=== PATIENT | female | born 1945 | race Caucasian/White ===

== ENCOUNTER 2021-07-25 11:14 | Inpatient (IN) | payer MEDICARE, MEDICAID ==
[~2021-07-25] VITALS: Ht 170.2 cm; Wt 61.7 kg
[2021-07-25 13:19] LABS: BASOPHILS % 0.5 % (0.0-2.0); EOSINOPHILS % 1.3 % (0.0-5.0); HEMATOCRIT. 45.9 % (36.0-48.0); HEMOGLOBIN. 15.7 g/dL (12.0-16.0); LYMPHOCYTES % 25.3 % (20.0-50.0); MEAN CORPUSCULAR HEMOGLOBIN 31.7 pg (28.0-32.0); MEAN CORPUSCULAR VOLUME 92.3 fL (81.0-99.0); MEAN PLATELET VOLUME 7.9 fl (7.4-10.4); MONOCYTES % 10.9 % (2.0-8.0); PLATELET 222 x1000/uL (130-400); RED BLOOD CELL COUNT 4.97 mill/uL (4.2-5.4); RED CELL DISTRIBUTION WIDTH 13.5 % (11.6-14.6)
[2021-07-25 13:24] LABS: CHLORIDE 103 mEq/L (98-107)
[2021-07-25] MEDS ORDERED: SODIUM CHLORIDE 0.9% 500 ML IV ONE (13:30)
[2021-07-25] MEDS ORDERED: IPRATROPIUM BROMIDE (0.02%) 0.5MG/2.5ML NEB HHN STA (13:37)
[2021-07-25] MEDS ORDERED: METHYLPREDNISOLONE SOD SUCC 125 MG/2 ML VIAL IV STA (13:37)
[2021-07-25] MEDS ORDERED: ALBUTEROL (0.083%) 2.5MG/3ML NEB HHN STA (13:37)
[2021-07-25 14:28] LABS: BG CARBOXYHEMOGLOBIN 0.4 % (0.5-1.5); BG DEOXYHEMOGLOBIN 5.6 % (0.0-5.0); BG FRACTION INSPIRED OXYGEN 21; BG HCO3 ACT 23.6 mmol/L (22.0-26.0); BG METHEMOGLOBIN 0.2 % (0.0-1.5); BG OXYGEN SATURATION 94.4 % (92.0-98.5); BG OXYHEMOGLOBIN 93.8 % (94.0-97.0); BG PCO2 32.3 mmHg (35.0-45.0); BG PH 7.482 (7.350-7.450); BG PO2 68.5 mmHg (75.0-100.0); BG SAMPLE SITE RIGHT BRACHIAL; BG TOTAL HEMOGLOBIN 15.2 g/dL (12.0-18.0); BG VENT MODE ROOM AIR
[2021-07-25] MEDS ORDERED: LEVOFLOXACIN 500MG PREMIX 100 ML IV ONE (19:30)
[2021-07-26] MEDS ORDERED: IOHEXOL-350 100 ML BOTTLE ONE (08:02)
[2021-07-26] MEDS ORDERED: CEFTRIAXONE 1 G PREMIX 50 ML IV SCH (13:00)
[2021-07-26] MEDS ORDERED: ALBUTEROL 6.7GM HFA INHALER ORI PRN (13:00)
[2021-07-26] MEDS ORDERED: ONDANSETRON HCL 4MG/2ML INJ IV PRN (13:00)
[2021-07-26] MEDS ORDERED: POTASSIUM CHLORIDE 20MEQ TABLET SR PO NR (13:15)
[2021-07-26] MEDS: ENOXAPARIN 40MG/0.4ML SYR SUBCUT SCH (13:43)
[2021-07-27 10:44] VITALS: BP 141/75
[2021-07-27 11:08] VITALS: BP 130/75
[2021-07-27] MEDS: ENOXAPARIN 40MG/0.4ML SYR SUBCUT SCH (13:15)
[2021-07-27] MEDS: CEFTRIAXONE 1,000 MG in DEXTROSE 5% WATER 50 ML IV SCH (13:15)
[2021-07-27 16:00] VITALS: BP 138/75
[2021-07-27 22:00] VITALS: BP 80/52
[2021-07-28 06:00] VITALS: BP 137/82
[2021-07-28 08:28] LABS: BASOPHILS % 0.5 % (0.0-2.0); EOSINOPHILS % 2.3 % (0.0-5.0); HEMATOCRIT. 40.9 % (36.0-48.0); LYMPHOCYTES % 21.7 % (20.0-50.0); MEAN CORPUSCULAR HEMOGLOBIN 31.5 pg (28.0-32.0); MEAN CORPUSCULAR VOLUME 91.8 fL (81.0-99.0); MONOCYTES % 9.4 % (2.0-8.0); NEUTROPHILS % 66.1 % (40.0-76.0); PLATELET 211 x1000/uL (130-400); RED BLOOD CELL COUNT 4.46 mill/uL (4.2-5.4); RED CELL DISTRIBUTION WIDTH 13.3 % (11.6-14.6)
[2021-07-28 08:42] LABS: BG BASE EXCESS 3.3 mmol/L (-2.0-2.0); BG CARBOXYHEMOGLOBIN 0.4 % (0.5-1.5); BG DEOXYHEMOGLOBIN 6.5 % (0.0-5.0); BG HCO3 ACT 26.9 mmol/L (22.0-26.0); BG METHEMOGLOBIN 0.1 % (0.0-1.5); BG OXYGEN SATURATION 93.5 % (92.0-98.5); BG PCO2 37.9 mmHg (35.0-45.0); BG PH 7.469 (7.350-7.450); BG SAMPLE SITE RIGHT BRACHIAL; BG TOTAL HEMOGLOBIN 15.4 g/dL (12.0-18.0); BG VENT MODE ROOM AIR
[2021-07-28] MEDS ORDERED: POTASSIUM CHLORIDE 20MEQ TABLET SR PO NR (09:15)
[2021-07-28 09:46] LABS: CHLORIDE 108 mEq/L (98-107)
[2021-07-28 12:00] VITALS: BP 146/83
[2021-07-28] MEDS: ENOXAPARIN 40MG/0.4ML SYR SUBCUT SCH (14:38)
[2021-07-28] MEDS: CEFTRIAXONE 1,000 MG in DEXTROSE 5% WATER 50 ML IV SCH (14:38)
[2021-07-28] MEDS: ACETAMINOPHEN 325MG TABLET PO PRN (14:46)
[2021-07-28 20:00] VITALS: BP 142/89
[2021-07-29 04:00] VITALS: BP 144/89
[2021-07-29 08:00] VITALS: BP 128/84
[2021-07-29 12:00] VITALS: BP 144/79
[2021-07-29] MEDS: CEFTRIAXONE 1,000 MG in DEXTROSE 5% WATER 50 ML IV SCH (12:53)
[2021-07-29 13:38] LABS: BG BASE EXCESS 2.6 mmol/L (-2.0-2.0); BG CARBOXYHEMOGLOBIN 0.4 % (0.5-1.5); BG DEOXYHEMOGLOBIN 7.8 % (0.0-5.0); BG FRACTION INSPIRED OXYGEN 21; BG HCO3 ACT 26.1 mmol/L (22.0-26.0); BG METHEMOGLOBIN 0.3 % (0.0-1.5); BG OXYGEN SATURATION 92.1 % (92.0-98.5); BG OXYHEMOGLOBIN 91.5 % (94.0-97.0); BG PCO2 36.6 mmHg (35.0-45.0); BG PH 7.471 (7.350-7.450); BG PO2 59.6 mmHg (75.0-100.0); BG SAMPLE SITE RIGHT BRACHIAL; BG TOTAL HEMOGLOBIN 14.5 g/dL (12.0-18.0); BG VENT MODE ROOM AIR
[2021-07-29 13:43] LABS: BASOPHILS % 0.4 % (0.0-2.0); EOSINOPHILS % 3.5 % (0.0-5.0); HEMATOCRIT. 40.8 % (36.0-48.0); HEMOGLOBIN. 13.9 g/dL (12.0-16.0); LYMPHOCYTES % 24.3 % (20.0-50.0); MEAN CORPUSCULAR HEMOGLOBIN 30.8 pg (28.0-32.0); MEAN CORPUSCULAR VOLUME 90.5 fL (81.0-99.0); MEAN PLATELET VOLUME 7.9 fl (7.4-10.4); MONOCYTES % 9.7 % (2.0-8.0); NEUTROPHILS % 62.1 % (40.0-76.0); PLATELET 256 x1000/uL (130-400); RED BLOOD CELL COUNT 4.51 mill/uL (4.2-5.4); RED CELL DISTRIBUTION WIDTH 13.3 % (11.6-14.6)
[2021-07-29] MEDS: ENOXAPARIN 40MG/0.4ML SYR SUBCUT SCH (13:47)
[2021-07-29 13:53] LABS: CHLORIDE 107 mEq/L (98-107)
[2021-07-29 16:00] VITALS: BP 136/73
[2021-07-29] MEDS ORDERED: CLONIDINE 0.1MG TABLET PO PRN (16:30)
[2021-07-29] MEDS ORDERED: HYDROCODONE/ACETAMINOPHEN 5/325MG TABLET PO PRN (16:30)
[2021-07-29] MEDS ORDERED: NALOXONE HCL 0.4MG/ML VIAL IV PRN (16:45)
[2021-07-29] MEDS: DEXAMETHASONE 4MG TABLET PO SCH (17:54)
[2021-07-29 20:00] VITALS: BP 143/84
[2021-07-30] VITALS: BP 143/82
[2021-07-30 04:00] VITALS: BP 119/69
[2021-07-30 07:33] LABS: CLARITY URINE CLEAR (CLEAR); COLOR URINE YELLOW (YELLOW); KETONES URINE NEGATIVE (NEGATIVE); LEUKOCYTE ESTERASE URINE NEGATIVE (NEGATIVE); NITRITE URINE NEGATIVE (NEGATIVE); OCCULT BLOOD URINE NEGATIVE (NEGATIVE); PH URINE 5.5 (4.5-8.0); PROTEIN URINE NEGATIVE (NEGATIVE); SPECIFIC GRAVITY URINE 1.015 (1.005-1.030); UROBILINOGEN URINE 0.2 E.U./dL (0.2-1.0)
[2021-07-30 08:00] VITALS: BP 113/68
[2021-07-30] MEDS: DEXAMETHASONE 4MG TABLET PO SCH (08:37)
[2021-07-30 12:00] VITALS: BP 129/77
[2021-07-30] MEDS: CEFTRIAXONE 1,000 MG in DEXTROSE 5% WATER 50 ML IV SCH (12:06)
[2021-07-30] MEDS: ENOXAPARIN 40MG/0.4ML SYR SUBCUT SCH (13:22)
[2021-07-30 16:00] VITALS: BP 118/62
[2021-07-30] MEDS: ALBUTEROL 6.7GM HFA INHALER ORI SCH (16:48)
[2021-07-31 08:00] VITALS: BP 106/60
[2021-07-31] MEDS: DEXAMETHASONE 4MG TABLET PO SCH (08:50)
[2021-07-31] MEDS: ALBUTEROL 6.7GM HFA INHALER ORI SCH ×3 (08:50→22:04)
[2021-07-31 10:08] LABS: BG BASE EXCESS 1.7 mmol/L (-2.0-2.0); BG CARBOXYHEMOGLOBIN 0.4 % (0.5-1.5); BG DEOXYHEMOGLOBIN 3.3 % (0.0-5.0); BG FRACTION INSPIRED OXYGEN 28; BG HCO3 ACT 25.3 mmol/L (22.0-26.0); BG METHEMOGLOBIN 0.4 % (0.0-1.5); BG OXYGEN SATURATION 96.7 % (92.0-98.5); BG OXYHEMOGLOBIN 95.9 % (94.0-97.0); BG PCO2 36.4 mmHg (35.0-45.0); BG SAMPLE SITE LEFT BRACHIAL; BG TOTAL HEMOGLOBIN 14.1 g/dL (12.0-18.0); BG VENT MODE NASAL CANNULA
[2021-07-31 12:00] VITALS: BP 131/78
[2021-07-31] MEDS: ENOXAPARIN 40MG/0.4ML SYR SUBCUT SCH (14:49)
[2021-07-31 16:00] VITALS: BP 109/59
[2021-07-31 20:00] VITALS: BP 111/52
[2021-08-01] VITALS: BP 113/62
[2021-08-01 04:00] VITALS: BP 124/65
[2021-08-01] MEDS: ALBUTEROL 6.7GM HFA INHALER ORI SCH ×4 (05:35→21:57)
[2021-08-01 08:00] VITALS: BP 114/66
[2021-08-01] MEDS: DEXAMETHASONE 4MG TABLET PO SCH (08:27)
[2021-08-01 12:00] VITALS: BP 112/56
[2021-08-01] MEDS: ENOXAPARIN 40MG/0.4ML SYR SUBCUT SCH (15:33)
[2021-08-01 16:00] VITALS: BP 114/58
[2021-08-01 20:00] VITALS: BP 121/53
[2021-08-02] VITALS: BP 119/64
[2021-08-02 04:00] VITALS: BP 130/52
[2021-08-02] MEDS: ALBUTEROL 6.7GM HFA INHALER ORI SCH ×4 (04:44→21:28)
[2021-08-02 07:14] LABS: CHLORIDE 108 mEq/L (98-107)
[2021-08-02 07:15] LABS: HEMATOCRIT 40.2 % (36.0-48.0); HEMOGLOBIN 13.2 g/dL (12.0-16.0); MEAN CORPUSCULAR HEMOGLOBIN 30.7 pg (28.0-32.0); MEAN CORPUSCULAR VOLUME 93.2 fL (81.0-99.0); PLATELET 249 x1000/uL (130-400); RED BLOOD CELL COUNT 4.31 mill/uL (4.2-5.4); RED CELL DISTRIBUTION WIDTH 13.7 % (11.6-14.6)
[2021-08-02 08:00] VITALS: BP 125/71
[2021-08-02] MEDS: DEXAMETHASONE 4MG TABLET PO SCH (09:09)
[2021-08-02 12:00] VITALS: BP 108/65
[2021-08-02] MEDS: ENOXAPARIN 40MG/0.4ML SYR SUBCUT SCH (13:41)
[2021-08-02 16:00] VITALS: BP 129/78
[2021-08-02 20:00] VITALS: BP 115/74
[2021-08-03] VITALS: BP 119/68
[2021-08-03 04:00] VITALS: BP 112/72
[2021-08-03] MEDS: ALBUTEROL 6.7GM HFA INHALER ORI SCH ×4 (04:28→21:31)
[2021-08-03 07:52] VITALS: BP 129/67
[2021-08-03] MEDS: DEXAMETHASONE 4MG TABLET PO SCH (08:45)
[2021-08-03 11:58] VITALS: BP 136/72
[2021-08-03] MEDS: ENOXAPARIN 40MG/0.4ML SYR SUBCUT SCH (14:48)
[2021-08-03 16:31] VITALS: BP 99/66
[2021-08-03 20:00] VITALS: BP 124/73
[2021-08-04] VITALS (7 sets, daily range): BP systolic 102–143; BP diastolic 55–70
[2021-08-04] MEDS: ALBUTEROL 6.7GM HFA INHALER ORI SCH ×3 (03:56→21:22)
[2021-08-04] MEDS: DEXAMETHASONE 4MG TABLET PO SCH (08:03)
[2021-08-04] MEDS: ENOXAPARIN 40MG/0.4ML SYR SUBCUT SCH (14:47)
[2021-08-04] MEDS: FAMOTIDINE 20MG TABLET PO SCH (21:21)
[2021-08-05] VITALS: BP 106/45
[2021-08-05] MEDS: ALBUTEROL 6.7GM HFA INHALER ORI SCH ×2 (03:45→21:37)
[2021-08-05 04:00] VITALS: BP 119/44
[2021-08-05 08:00] VITALS: BP 134/59
[2021-08-05] MEDS: DEXAMETHASONE 2MG TABLET PO SCH (10:00)
[2021-08-05 12:00] VITALS: BP 118/61
[2021-08-05] MEDS: ENOXAPARIN 40MG/0.4ML SYR SUBCUT SCH (15:44)
[2021-08-05 16:00] VITALS: BP 114/54
[2021-08-05 20:00] VITALS: BP 108/45
[2021-08-05] MEDS: FAMOTIDINE 20MG TABLET PO SCH (21:37)
[2021-08-06] VITALS: BP 104/41
[2021-08-06] MEDS: ALBUTEROL 6.7GM HFA INHALER ORI SCH ×4 (03:45→21:24)
[2021-08-06 04:00] VITALS: BP 113/63
[2021-08-06 08:00] VITALS: BP 134/58
[2021-08-06] MEDS: DEXAMETHASONE 2MG TABLET PO SCH (08:40)
[2021-08-06] MEDS: ACETAMINOPHEN 325MG TABLET PO PRN (08:40)
[2021-08-06 12:00] VITALS: BP_SYST 111; BP_SYST 97; BP_SYST 98; BP_DIAS 53; BP_DIAS 54; BP_DIAS 55
[2021-08-06] MEDS ORDERED: ALBU90AE INH (12:18)
[2021-08-06] MEDS ORDERED: MECL-159 MT (12:18)
[2021-08-06] MEDS ORDERED: MECLIZINE 25MG TABLET PO NR (12:30)
[2021-08-06] MEDS: ENOXAPARIN 40MG/0.4ML SYR SUBCUT SCH (15:59)
[2021-08-06 16:00] VITALS: BP 108/49
[2021-08-06 16:41] LABS: BASOPHILS % 0.1 % (0.0-2.0); EOSINOPHILS % 0.9 % (0.0-5.0); HEMATOCRIT. 37.1 % (36.0-48.0); HEMOGLOBIN. 12.6 g/dL (12.0-16.0); LYMPHOCYTES % 15.2 % (20.0-50.0); MEAN CORPUSCULAR HEMOGLOBIN 31.2 pg (28.0-32.0); MEAN CORPUSCULAR VOLUME 92.3 fL (81.0-99.0); MONOCYTES % 6.8 % (2.0-8.0); PLATELET 255 x1000/uL (130-400); RED BLOOD CELL COUNT 4.03 mill/uL (4.2-5.4); RED CELL DISTRIBUTION WIDTH 13.9 % (11.6-14.6)
[2021-08-06 17:54] LABS: CHLORIDE 107 mEq/L (98-107)
[2021-08-06 20:00] VITALS: BP 100/57
[2021-08-06] MEDS: FAMOTIDINE 20MG TABLET PO SCH (21:24)
[2021-08-06] MEDS: SODIUM CHLORIDE 0.45% 1,000 ML IV SCH (21:25)
[2021-08-07] VITALS (7 sets, daily range): BP systolic 99–121; BP diastolic 54–73
[2021-08-07] MEDS: MECLIZINE 25MG TABLET PO PRN ×2 (01:10→20:45)
[2021-08-07] MEDS: ALBUTEROL 6.7GM HFA INHALER ORI SCH ×4 (04:35→20:45)
[2021-08-07] MEDS: SODIUM CHLORIDE 0.45% 1,000 ML IV SCH ×2 (06:45→18:06)
[2021-08-07 09:28] LABS: BASOPHILS % 0.7 % (0.0-2.0); EOSINOPHILS % 1.9 % (0.0-5.0); HEMATOCRIT. 37.4 % (36.0-48.0); HEMOGLOBIN. 12.7 g/dL (12.0-16.0); LYMPHOCYTES % 27.7 % (20.0-50.0); MEAN CORPUSCULAR HEMOGLOBIN 31.5 pg (28.0-32.0); MEAN PLATELET VOLUME 8.5 fl (7.4-10.4); MONOCYTES % 7.1 % (2.0-8.0); NEUTROPHILS % 62.6 % (40.0-76.0); PLATELET 230 x1000/uL (130-400); RED BLOOD CELL COUNT 4.02 mill/uL (4.2-5.4); RED CELL DISTRIBUTION WIDTH 14.1 % (11.6-14.6)
[2021-08-07 09:39] LABS: CHLORIDE 107 mEq/L (98-107)
[2021-08-07] MEDS: DEXAMETHASONE 2MG TABLET PO SCH (10:23)
[2021-08-07] MEDS ORDERED: CEFTRIAXONE 1 G PREMIX 50 ML IV SCH (11:15)
[2021-08-07] MEDS: CEFTRIAXONE 1,000 MG in DEXTROSE 5% WATER 50 ML IV SCH (13:06)
[2021-08-07] MEDS: ENOXAPARIN 40MG/0.4ML SYR SUBCUT SCH (14:00)
[2021-08-07 16:00] LABS: CLARITY URINE CLEAR (CLEAR); COLOR URINE YELLOW (YELLOW); KETONES URINE NEGATIVE (NEGATIVE); LEUKOCYTE ESTERASE URINE TRACE (NEGATIVE); NITRITE URINE NEGATIVE (NEGATIVE); OCCULT BLOOD URINE NEGATIVE (NEGATIVE); PH URINE 7.5 (4.5-8.0); PROTEIN URINE NEGATIVE (NEGATIVE); SPECIFIC GRAVITY URINE 1.011 (1.005-1.030)
[2021-08-07] MEDS: FAMOTIDINE 20MG TABLET PO SCH (20:45)
[2021-08-08] VITALS: BP 121/54
[2021-08-08] MEDS: SODIUM CHLORIDE 0.45% 1,000 ML IV SCH ×3 (02:45→21:52)
[2021-08-08] MEDS: ALBUTEROL 6.7GM HFA INHALER ORI SCH ×4 (03:54→21:25)
[2021-08-08 04:00] VITALS: BP 128/60
[2021-08-08 06:03] LABS: CHLORIDE 108 mEq/L (98-107)
[2021-08-08 06:33] LABS: BASOPHILS % 0.9 % (0.0-2.0); EOSINOPHILS % 2.6 % (0.0-5.0); HEMOGLOBIN. 12.1 g/dL (12.0-16.0); LYMPHOCYTES % 22.1 % (20.0-50.0); MEAN CORPUSCULAR VOLUME 92.2 fL (81.0-99.0); MEAN PLATELET VOLUME 8.8 fl (7.4-10.4); MONOCYTES % 8.4 % (2.0-8.0); PLATELET 214 x1000/uL (130-400)
[2021-08-08 08:00] VITALS: BP 139/63
[2021-08-08] MEDS: DEXAMETHASONE 2MG TABLET PO SCH (08:51)
[2021-08-08 11:48] VITALS: BP 123/69
[2021-08-08] MEDS: ENOXAPARIN 40MG/0.4ML SYR SUBCUT SCH (13:31)
[2021-08-08] MEDS: CEFTRIAXONE 1,000 MG in DEXTROSE 5% WATER 50 ML IV SCH (13:31)
[2021-08-08] MEDS ORDERED: LORAZEPAM 2MG/ML CPJ IV NR (14:45)
[2021-08-08 16:00] VITALS: BP_SYST 100; BP_SYST 104; BP_SYST 122; BP_DIAS 57; BP_DIAS 58; BP_DIAS 62
[2021-08-08 20:00] VITALS: BP_SYST 123; BP_SYST 129; BP_SYST 132; BP_DIAS 59; BP_DIAS 66; BP_DIAS 68
[2021-08-08] MEDS: ACETAMINOPHEN 325MG TABLET PO PRN (20:05)
[2021-08-08] MEDS: FAMOTIDINE 20MG TABLET PO SCH (20:05)
[2021-08-09] VITALS: BP 125/52
[2021-08-09] MEDS: ALBUTEROL 6.7GM HFA INHALER ORI SCH ×3 (03:45→18:29)
[2021-08-09] MEDS: MECLIZINE 25MG TABLET PO PRN (03:45)
[2021-08-09 04:00] VITALS: BP 149/85
[2021-08-09 08:00] VITALS: BP 147/73
[2021-08-09] MEDS: DEXAMETHASONE 2MG TABLET PO SCH (08:52)
[2021-08-09 12:00] VITALS: BP 147/73
[2021-08-09] MEDS: ENOXAPARIN 40MG/0.4ML SYR SUBCUT SCH (13:50)
[2021-08-09] MEDS: CEFTRIAXONE 1,000 MG in DEXTROSE 5% WATER 50 ML IV SCH (13:50)
[2021-08-09] MEDS: SODIUM CHLORIDE 0.45% 1,000 ML IV SCH ×2 (14:46→21:31)
[2021-08-09 16:00] VITALS: BP_SYST 133; BP_SYST 99; BP_DIAS 54; BP_DIAS 73
[2021-08-09 20:00] VITALS: BP 120/58
[2021-08-09] MEDS: FAMOTIDINE 20MG TABLET PO SCH (21:23)
[2021-08-09] MEDS: ACETAMINOPHEN 325MG TABLET PO PRN (21:23)
[2021-08-10] VITALS: BP 122/55
[2021-08-10] MEDS: ALBUTEROL 6.7GM HFA INHALER ORI SCH ×2 (03:39→08:58)
[2021-08-10 04:00] VITALS: BP_SYST 148; BP_SYST 153; BP_DIAS 78; BP_DIAS 98
[2021-08-10] MEDS: MECLIZINE 25MG TABLET PO PRN (04:21)
[2021-08-10 08:00] VITALS: BP 136/79
[2021-08-10] MEDS: DEXAMETHASONE 2MG TABLET PO SCH (08:56)
[2021-08-10] MEDS ORDERED: LORAZEPAM 2MG/ML CPJ IV SCH (09:00)
[2021-08-10 10:40] VITALS: BP 136/79
== END 2021-08-10 12:08 | disposition home health service (06) | DRG 177 ==
LOC: ER 11:14 → EDBEDREQ 15:15 → 7EST 17:17 → EDBEDREQ 17:23 → ENRESERV 07-27 08:40 → 6WST 08-04 08:56
PROVIDERS: ADMIT Internal Medicine; ATTEND Internal Medicine
DX: U07.1 COVID-19 (principal); J96.01 Acute respiratory failure with hypoxia; E43 Unspecified severe protein-calorie malnutrition; J12.82 Pneumonia due to coronavirus disease 2019; G93.40 Encephalopathy, unspecified; N13.30 Unspecified hydronephrosis; E87.6 Hypokalemia; K80.20 Calculus of gallbladder without cholecystitis without obstruction; G90.8 Other disorders of autonomic nervous system; R74.01 Elevation of levels of liver transaminase levels; Z88.0 Allergy status to penicillin; Z90.49 Acquired absence of other specified parts of digestive tract; Z68.21 Body mass index [BMI] 21.0-21.9, adult; Z87.891 Personal history of nicotine dependence; I11.9 Hypertensive heart disease without heart failure; J06.9 Acute upper respiratory infection, unspecified
CPT/HCPCS: 36415; 36600; 71045; 71275; 76700; 80048; 80053; 81003; 82375; 82805; 83880; 84145; 84484; 85025; 85027; 85379; 87426; 93005; 96365; 96366; 96367; 96372; 96375; 97162; 97164; 97535; 99285; C1893; J0696; J1650; J1956; J2405; J2930; J7030; J7042; J7060; J8540; J8597; Q9967

== ENCOUNTER 2022-03-18 09:17 | Emergency (ER) | payer MEDICARE, MEDICAID ==
[~2022-03-18] VITALS: Ht 170.2 cm; Wt 57.0 kg
[~2022-03-18 09:17] MED LIST: ALBU90AE INH; MECL-159 MT
[2022-03-18 11:45] LABS: BASOPHILS % 1.1 % (0.0-2.0); EOSINOPHILS % 2.4 % (0.0-5.0); HEMATOCRIT. 40.9 % (36.0-48.0); HEMOGLOBIN. 13.4 g/dL (12.0-16.0); LYMPHOCYTES % 37.4 % (20.0-50.0); MEAN CORPUSCULAR HEMOGLOBIN 31.7 pg (28.0-32.0); MEAN CORPUSCULAR VOLUME 96.7 fL (81.0-99.0); MEAN PLATELET VOLUME 8.5 fl (7.4-10.4); MONOCYTES % 8.6 % (2.0-8.0); NEUTROPHILS % 50.5 % (40.0-76.0); PLATELET 196 x1000/uL (130-400); RED BLOOD CELL COUNT 4.23 mill/uL (4.2-5.4); RED CELL DISTRIBUTION WIDTH 14.5 % (11.6-14.6)
[2022-03-18 11:55] LABS: INR 1.1; PROTHROMBIN TIME 11.4 sec (9.6-11.0)
[2022-03-18 11:57] LABS: CHLORIDE 108 mEq/L (98-107)
[2022-03-18 12:08] LABS: CLARITY URINE CLEAR (CLEAR); COLOR URINE DARK YELLOW (YELLOW); KETONES URINE TRACE (NEGATIVE); LEUKOCYTE ESTERASE URINE 2+ (NEGATIVE); NITRITE URINE NEGATIVE (NEGATIVE); OCCULT BLOOD URINE NEGATIVE (NEGATIVE); PROTEIN URINE NEGATIVE (NEGATIVE); SPECIFIC GRAVITY URINE 1.026 (1.005-1.030)
[2022-03-18] MEDS ORDERED: LEVO500T90 PO (14:28)
[2022-03-18 14:30] VITALS: BP 146/72
== END 2022-03-18 14:51 | disposition home or self-care (01) ==
LOC: ER 09:17
DX: N39.0 Urinary tract infection, site not specified (principal); I51.9 Heart disease, unspecified; Z88.3 Allergy status to other anti-infective agents; Z90.49 Acquired absence of other specified parts of digestive tract; Z90.710 Acquired absence of both cervix and uterus
CPT/HCPCS: 36415; 74176; 80053; 81003; 85025; 93005; 99285

== ENCOUNTER 2022-05-20 09:18 | Emergency (ER) | payer MEDICARE, MEDICAID ==
[~2022-05-20] VITALS: Ht 170.2 cm; Wt 57.0 kg
[~2022-05-20 09:18] MED LIST changes: +LEVO-65 PO
[2022-05-20 09:29] VITALS: BP 122/81
[2022-05-20 15:59] LABS: BASOPHILS % 0.6 % (0.0-2.0); EOSINOPHILS % 0.3 % (0.0-5.0); HEMOGLOBIN. 15.6 g/dL (12.0-16.0); LYMPHOCYTES % 28.2 % (20.0-50.0); MEAN CORPUSCULAR HEMOGLOBIN 32.2 pg (28.0-32.0); MEAN CORPUSCULAR VOLUME 94.9 fL (81.0-99.0); MEAN PLATELET VOLUME 8.1 fl (7.4-10.4); MONOCYTES % 7.7 % (2.0-8.0); NEUTROPHILS % 63.2 % (40.0-76.0); PLATELET 305 x1000/uL (130-400); RED BLOOD CELL COUNT 4.85 mill/uL (4.2-5.4); RED CELL DISTRIBUTION WIDTH 14.1 % (11.6-14.6)
[2022-05-20 16:05] LABS: CHLORIDE 100 mEq/L (98-107)
== END 2022-05-20 20:45 | disposition home or self-care (01) ==
LOC: ER 09:30
DX: B34.9 Viral infection, unspecified (principal); J40 Bronchitis, not specified as acute or chronic; I51.9 Heart disease, unspecified; Z88.3 Allergy status to other anti-infective agents; Z90.49 Acquired absence of other specified parts of digestive tract; Z90.710 Acquired absence of both cervix and uterus; Z20.822 Contact with and (suspected) exposure to COVID-19
CPT/HCPCS: 36415; 71045; 80053; 83605; 83880; 84484; 85025; 87426; 87804; 93005; 99285; C9803

== ENCOUNTER 2025-01-10 15:10 | Emergency (ER) | payer MEDICARE, MEDICAID ==
[~2025-01-10] VITALS: Ht 165.1 cm; Wt 52.0 kg
[~2025-01-10 15:10] MED LIST changes: -ALBU90AE INH; +ASPI-1497 PO; +COR3 PO; -MECL-159 MT; +METR-167 MT; +P20 PO; +P50 PO; +PRED10TA PO
[2025-01-10 15:15] VITALS: TEMP 36.5; O2SAT 96
[2025-01-10 16:45] VITALS: BP 115/70; PULSE 98; RESP 16; O2SAT 98
== END 2025-01-10 16:52 | disposition home or self-care (01) ==
LOC: ER 15:10
DX: K43.9 Ventral hernia without obstruction or gangrene (principal); I10 Essential (primary) hypertension; Z88.0 Allergy status to penicillin; Z79.82 Long term (current) use of aspirin; Z79.899 Other long term (current) drug therapy
CPT/HCPCS: 99283

== ENCOUNTER 2025-05-28 15:25 | Emergency (ER) | payer MEDICARE, MEDICAID ==
[~2025-05-28] VITALS: Ht 170.2 cm; Wt 58.0 kg
[~2025-05-28 15:25] MED LIST changes: +HYDR-4001 MT; -LEVO-65 PO; -METR-167 MT; -P20 PO; -P50 PO; -PRED10TA PO
[2025-05-28 15:38] VITALS: O2SAT 97
[2025-05-28 18:19] LABS: BASOPHILS % 1.4 % (0.0-2.0); EOSINOPHILS % 2.5 % (0.0-5.0); HEMATOCRIT. 40.4 % (36.0-48.0); HEMOGLOBIN. 13.4 g/dL (12.0-16.0); LYMPHOCYTES % 25.9 % (20.0-50.0); MEAN PLATELET VOLUME 9.1 fl (7.4-10.4); MONOCYTES % 8.4 % (2.0-8.0); NEUTROPHILS % 61.8 % (40.0-76.0); PLATELET 186 x1000/uL (130-400); RED BLOOD CELL COUNT 4.00 mill/uL (4.2-5.4); RED CELL DISTRIBUTION WIDTH 14.9 % (11.6-14.6)
[2025-05-28 18:31] LABS: CREATININE 0.5 mg/dL (0.6-1.0)
[2025-05-28 18:32] LABS: UREA NITROGEN BLOOD 7 mg/dL (9-23)
[2025-05-28 18:33] LABS: ASPARTATE AMINOTRANSFERASE 96 IU/L (<34)
[2025-05-28] MEDS: ACETAMINOPHEN 500MG TABLET PO ONE (18:33)
[2025-05-28 18:34] LABS: BILIRUBIN DIRECT 1.0 mg/dL (<=3.0); BILIRUBIN TOTAL 2.0 mg/dL (0.1-1.0); PROTEIN TOTAL 6.7 g/dL (6.0-8.3)
[2025-05-28] MEDS: AMPICILLIN SOD/SULBACTAM NA 3 G in SODIUM CHLORIDE 0.9% 100 ML IV ONE (18:34)
[2025-05-28 20:45] VITALS: BP 136/70; PULSE 86; RESP 23; TEMP 36.9; O2SAT 95
== END 2025-05-28 21:22 | disposition short-term general hospital (02) ==
LOC: ER 15:25 → CMPBEDREQ 05-29 08:45
DX: L03.114 Cellulitis of left upper limb (principal); I11.0 Hypertensive heart disease with heart failure; Z79.52 Long term (current) use of systemic steroids; Z79.82 Long term (current) use of aspirin; Z88.0 Allergy status to penicillin; Z98.890 Other specified postprocedural states; Z79.899 Other long term (current) drug therapy
CPT/HCPCS: 99285; 96365; 80076; 80048; 85025; 36415; J0295; J7050; A6449